=== PATIENT | female | born 1965 | race Caucasian/White ===

== ENCOUNTER 2017-08-11 10:09 | Day surgery (SDC) | payer OTHER ==
[2017-08-11] MEDS ORDERED: FENTAnyl 50 MCG/ML VIAL (12:11)
[2017-08-11] MEDS ORDERED: MIDAZOLAM 1 MG/ML 2 ML INJ ×2 (12:11)
== END 2017-08-11 14:25 | disposition home or self-care (01) ==
LOC: GIL 10:09
DX: R19.4 Change in bowel habit (principal); D12.5 Benign neoplasm of sigmoid colon; K29.50 Unspecified chronic gastritis without bleeding; K57.90 Diverticulosis of intestine, part unspecified, without perforation or abscess without bleeding; K64.8 Other hemorrhoids; K25.9 Gastric ulcer, unspecified as acute or chronic, without hemorrhage or perforation; I10 Essential (primary) hypertension
CPT/HCPCS: 43239; 84703